=== PATIENT | male | born 1975 | race Caucasian/White ===

== ENCOUNTER 2021-09-30 11:31 | Inpatient (IN) ==
[2021-09-30] MEDS ORDERED: methylPREDNISolone SOD SUC 125 MG/2 ML VIAL IV STA (12:15)
[2021-09-30] MEDS ORDERED: SODIUM CHLORIDE 0.9% 1,000 ML IV STA (12:15)
[2021-09-30 12:24] LABS: Basophils % 0.3 % (0.0-0.8); Eosinophils # 0.1 10*3/uL (0.0-0.87); Eosinophils % 0.6 % (0.00-10.9); Hematocrit 45.1 VOL% (42.0-52.0); Hemoglobin 15.3 GM/DL (14.0-18.0); Immature Granulocytes % 0.5 %; Immature Granulocytes Absolute 0.08 #; Lymphocytes # 1.2 10*3/uL (1.4-4.0); Lymphocytes % 7.9 % (21.2-54.2); Mean Corpuscular HGB Conc 33.9 GM/DL (32-36); Mean Corpuscular Volume 94.7 FL (87-102); Mean Platelet Volume 8.6 FL (9.6-12.0); Monocytes # 1.1 10*3/uL (0.11-0.8); Monocytes % 6.9 % (1.7-12.7); Neutrophils % 83.8 % (38.7-73.9); Platelet Count 263 T/CUMM (130-400); Red Blood Count 4.76 MC/CUMM (3.8-5.5); Red Cell Distribution Width 14.1 % (9.3-17.3); White Blood Count 15.5 T/CUMM (4-12)
[2021-09-30] MEDS ORDERED: SODIUM CHLORIDE 0.9% 2,900 ML IV ONE (12:45)
[2021-09-30 12:46] LABS: Albumin 3.1 G/DL (3.4-5.0); Bilirubin,Total 0.5 MG/DL (0.20-1.00); Calcium 8.6 MG/DL (8.5-10.1); Osmolality,Calculated 275.5 MOS/KG (273-304); Potassium 3.3 MMOL/L (3.5-5.1); Total Protein 7.1 G/DL (6.4-8.2)
[2021-09-30] MEDS ORDERED: LEVOFLOXACIN INJ 750 MG in PREMIX 1 EACH IV STA (12:46)
[2021-09-30 12:48] LABS: Mucus,Urine Occasional /LPF (Occasional); RBC,Urine 4 /HPF (0-4); Squamous Epithelial Cell,Urine Occasional /HPF (0-10); Urine Appearance Clear (Clear); Urine Color Yellow (Yellow)
[2021-09-30 12:49] LABS: Bilirubin,Urine Negative (Negative); Blood, Urine Negative (Negative); Glucose,Urine (UA) Negative (Negative); Ketones,Urine Negative (Negative); Nitrite,Urine Negative (Negative); Protein,Urine 100 mg/dL (Negative)
[2021-09-30 12:52] LABS: PT Patient Result 11.4 SECS (10.5-12.0); Partial Thromboplastin Time 24.2 SECS (23.8-32.1)
[2021-09-30] MEDS ORDERED: DEXTROSE 10% 250 ML BAG IV PRN (13:27)
[2021-09-30] MEDS ORDERED: DOCUSATE SODIUM 100 MG CAPSULE PO PRN (13:27)
[2021-09-30] MEDS ORDERED: hydrALAZINE 20 MG/1 ML VIAL IV PRN (13:27)
[2021-09-30] MEDS ORDERED: ACETAMINOPHEN 325 MG TABLET PO PRN (13:27)
[2021-09-30] MEDS ORDERED: ONDANSETRON 4 MG/2 ML VIAL IV PRN (13:27)
[2021-09-30] MEDS ORDERED: GLUCAGON 1 MG VIAL IM PRN (13:27)
[2021-09-30] MEDS: methylPREDNISolone SOD SUC 125 MG/2 ML VIAL IV SCH ×2 (14:45→21:14)
[2021-09-30] MEDS: ENOXAPARIN 40 MG/0.4 ML SYRINGE SUBCUT SCH (14:45)
[2021-09-30] MEDS ORDERED: PNEUMOCOCCAL VACCINE (23 VALENT) 0.5 ML VIAL IM ONE (15:20)
[2021-09-30] MEDS: SODIUM CHLORIDE 0.9% 1,000 ML IV SCH (16:15)
[2021-09-30] MEDS: VANCOMYCIN INJ 1,500 MG in SODIUM CHLORIDE 0.9% 500 ML IV SCH (18:25)
[2021-09-30] MEDS: INSULIN LISPRO 100 UNIT/ML SUBCUT SCH ×2 (18:25→20:39)
[2021-09-30] MEDS: ALBUTEROL/IPRATROPIUM 3 ML NEB RESP TX SCH (19:31)
[2021-09-30] MEDS: DICLOFENAC SODIUM 75 MG TABLET PO SCH (21:12)
[2021-10-01] MEDS: ALBUTEROL/IPRATROPIUM 3 ML NEB RESP TX SCH ×4 (00:30→19:41)
[2021-10-01 02:44] LABS: Basophils % 0.1 % (0.0-0.8); Hematocrit 41.7 VOL% (42.0-52.0); Hemoglobin 14.2 GM/DL (14.0-18.0); Immature Granulocytes % 0.4 %; Immature Granulocytes Absolute 0.04 #; Lymphocytes # 0.8 10*3/uL (1.4-4.0); Lymphocytes % 7.1 % (21.2-54.2); Mean Corpuscular HGB Conc 34.1 GM/DL (32-36); Mean Corpuscular Volume 95.4 FL (87-102); Mean Platelet Volume 8.6 FL (9.6-12.0); Monocytes # 0.3 10*3/uL (0.11-0.8); Neutrophils % 89.4 % (38.7-73.9); Platelet Count 239 T/CUMM (130-400); Red Blood Count 4.37 MC/CUMM (3.8-5.5); Red Cell Distribution Width 13.8 % (9.3-17.3)
[2021-10-01 02:56] LABS: Calcium 8.3 MG/DL (8.5-10.1); Osmolality,Calculated 280.4 MOS/KG (273-304); Potassium 3.7 MMOL/L (3.5-5.1)
[2021-10-01] MEDS: methylPREDNISolone SOD SUC 125 MG/2 ML VIAL IV SCH ×3 (05:22→21:18)
[2021-10-01] MEDS: SODIUM CHLORIDE 0.9% 1,000 ML IV SCH ×2 (05:22→17:10)
[2021-10-01] MEDS: VANCOMYCIN INJ 1,500 MG in SODIUM CHLORIDE 0.9% 500 ML IV SCH ×2 (05:24→17:10)
[2021-10-01] MEDS: DICLOFENAC SODIUM 75 MG TABLET PO SCH ×2 (10:01→21:17)
[2021-10-01] MEDS: MONTELUKAST 10 MG TABLET PO SCH (10:01)
[2021-10-01] MEDS: INSULIN LISPRO 100 UNIT/ML SUBCUT SCH ×4 (10:01→23:22)
[2021-10-01] MEDS: lisinopriL 10 MG TABLET PO SCH (10:01)
[2021-10-01] MEDS: PANTOPRAZOLE 40 MG TABLET PO SCH (10:01)
[2021-10-01] MEDS: LEVOFLOXACIN INJ 500 MG/100 ML PREMIX IV SCH (13:50)
[2021-10-01] MEDS: ENOXAPARIN 40 MG/0.4 ML SYRINGE SUBCUT SCH (13:50)
[2021-10-01] MEDS: FOLIC ACID 1 MG TABLET PO SCH (21:17)
[2021-10-02] MEDS: ALBUTEROL/IPRATROPIUM 3 ML NEB RESP TX SCH ×4 (00:25→20:13)
[2021-10-02] MEDS: methylPREDNISolone SOD SUC 125 MG/2 ML VIAL IV SCH ×3 (02:00→18:18)
[2021-10-02] MEDS: VANCOMYCIN INJ 1,500 MG in SODIUM CHLORIDE 0.9% 500 ML IV SCH ×2 (05:53→18:18)
[2021-10-02 06:29] LABS: Basophils % 0.1 % (0.0-0.8); Hematocrit 42.6 VOL% (42.0-52.0); Immature Granulocytes % 1.3 %; Immature Granulocytes Absolute 0.17 #; Lymphocytes # 0.6 10*3/uL (1.4-4.0); Lymphocytes % 4.8 % (21.2-54.2); Mean Corpuscular HGB Conc 32.9 GM/DL (32-36); Mean Corpuscular Volume 96.8 FL (87-102); Mean Platelet Volume 8.8 FL (9.6-12.0); Monocytes # 0.7 10*3/uL (0.11-0.8); Neutrophils % 88.8 % (38.7-73.9); Platelet Count 256 T/CUMM (130-400); Red Cell Distribution Width 14.1 % (9.3-17.3); White Blood Count 13.1 T/CUMM (4-12)
[2021-10-02 06:44] LABS: Calcium 8.9 MG/DL (8.5-10.1); Potassium 3.5 MMOL/L (3.5-5.1)
[2021-10-02 06:56] LABS: Lymphocytes 1 % (20-55); Total Cells Counted 100
[2021-10-02 06:57] LABS: Platelet Estimate Normal
[2021-10-02 07:03] LABS: Calcium 8.8 MG/DL (8.5-10.1); Potassium 3.6 MMOL/L (3.5-5.1)
[2021-10-02] MEDS: SODIUM CHLORIDE 0.9% 1,000 ML IV SCH (08:15)
[2021-10-02] MEDS: INSULIN LISPRO 100 UNIT/ML SUBCUT SCH ×3 (08:16→16:30)
[2021-10-02] MEDS: MONTELUKAST 10 MG TABLET PO SCH (08:31)
[2021-10-02] MEDS: MULTIVITAMIN (CENTRUM) TABLET PO SCH (08:31)
[2021-10-02] MEDS: lisinopriL 10 MG TABLET PO SCH (08:32)
[2021-10-02] MEDS: PANTOPRAZOLE 40 MG TABLET PO SCH (08:32)
[2021-10-02] MEDS: DICLOFENAC SODIUM 75 MG TABLET PO SCH ×2 (08:32→21:15)
[2021-10-02] MEDS: THIAMINE 100 MG TABLET PO SCH (08:33)
[2021-10-02] MEDS ORDERED: FUROSEMIDE 40 MG/4 ML VIAL IV ONE (11:00)
[2021-10-02] MEDS: LEVOFLOXACIN INJ 500 MG/100 ML PREMIX IV SCH (12:00)
[2021-10-02] MEDS: ENOXAPARIN 40 MG/0.4 ML SYRINGE SUBCUT SCH (13:45)
[2021-10-02] MEDS ORDERED: SODIUM CHLORIDE 0.65% NASAL SPRAY 45 ML BOTTLE BOTH NARES PRN (20:06)
[2021-10-02] MEDS: FOLIC ACID 1 MG TABLET PO SCH (21:15)
[2021-10-02] MEDS: ZALEPLON 5 MG CAPSULE PO PRN (22:29)
[2021-10-03] MEDS: ALBUTEROL/IPRATROPIUM 3 ML NEB RESP TX SCH ×4 (00:18→19:40)
[2021-10-03] MEDS: methylPREDNISolone SOD SUC 125 MG/2 ML VIAL IV SCH ×3 (02:21→17:58)
[2021-10-03] MEDS: VANCOMYCIN INJ 1,500 MG in SODIUM CHLORIDE 0.9% 500 ML IV SCH ×2 (05:44→17:58)
[2021-10-03 06:53] LABS: Basophils % 0.2 % (0.0-0.8); Hematocrit 44.5 VOL% (42.0-52.0); Hemoglobin 14.6 GM/DL (14.0-18.0); Immature Granulocytes % 1.5 %; Immature Granulocytes Absolute 0.16 #; Lymphocytes # 0.6 10*3/uL (1.4-4.0); Lymphocytes % 5.5 % (21.2-54.2); Mean Corpuscular HGB Conc 32.8 GM/DL (32-36); Mean Platelet Volume 9.3 FL (9.6-12.0); Monocytes # 0.5 10*3/uL (0.11-0.8); Monocytes % 4.6 % (1.7-12.7); Neutrophils % 88.2 % (38.7-73.9); Platelet Count 283 T/CUMM (130-400); Red Blood Count 4.54 MC/CUMM (3.8-5.5); Red Cell Distribution Width 14.6 % (9.3-17.3)
[2021-10-03 07:09] LABS: Calcium 8.7 MG/DL (8.5-10.1); Osmolality,Calculated 283.3 MOS/KG (273-304); Potassium 3.5 MMOL/L (3.5-5.1)
[2021-10-03] MEDS: DICLOFENAC SODIUM 75 MG TABLET PO SCH ×2 (09:40→20:49)
[2021-10-03] MEDS: lisinopriL 10 MG TABLET PO SCH (09:40)
[2021-10-03] MEDS: THIAMINE 100 MG TABLET PO SCH (09:40)
[2021-10-03] MEDS: MONTELUKAST 10 MG TABLET PO SCH (09:40)
[2021-10-03] MEDS: MULTIVITAMIN (CENTRUM) TABLET PO SCH (09:40)
[2021-10-03] MEDS: PANTOPRAZOLE 40 MG TABLET PO SCH (09:41)
[2021-10-03] MEDS: INSULIN LISPRO 100 UNIT/ML SUBCUT SCH ×5 (10:05→22:12)
[2021-10-03] MEDS: LEVOFLOXACIN INJ 500 MG/100 ML PREMIX IV SCH (13:50)
[2021-10-03] MEDS: ENOXAPARIN 40 MG/0.4 ML SYRINGE SUBCUT SCH (13:51)
[2021-10-03] MEDS: FOLIC ACID 1 MG TABLET PO SCH (20:49)
[2021-10-03] MEDS: ZALEPLON 5 MG CAPSULE PO PRN (23:02)
[2021-10-04] MEDS: ALBUTEROL/IPRATROPIUM 3 ML NEB RESP TX SCH ×4 (00:13→19:55)
[2021-10-04] MEDS: methylPREDNISolone SOD SUC 125 MG/2 ML VIAL IV SCH ×2 (02:18→09:06)
[2021-10-04 05:02] LABS: Basophils % 0.2 % (0.0-0.8); Hematocrit 42.7 VOL% (42.0-52.0); Hemoglobin 14.2 GM/DL (14.0-18.0); Immature Granulocytes % 2.8 %; Immature Granulocytes Absolute 0.31 #; Lymphocytes # 0.7 10*3/uL (1.4-4.0); Lymphocytes % 6.6 % (21.2-54.2); Mean Corpuscular HGB Conc 33.3 GM/DL (32-36); Mean Corpuscular Volume 96.6 FL (87-102); Mean Platelet Volume 8.7 FL (9.6-12.0); Monocytes # 0.7 10*3/uL (0.11-0.8); Monocytes % 6.6 % (1.7-12.7); Neutrophils % 83.8 % (38.7-73.9); Platelet Count 266 T/CUMM (130-400); Red Blood Count 4.42 MC/CUMM (3.8-5.5); Red Cell Distribution Width 14.5 % (9.3-17.3); White Blood Count 10.9 T/CUMM (4-12)
[2021-10-04 05:22] LABS: Calcium 8.7 MG/DL (8.5-10.1); Potassium 3.6 MMOL/L (3.5-5.1)
[2021-10-04] MEDS: VANCOMYCIN INJ 1,500 MG in SODIUM CHLORIDE 0.9% 500 ML IV SCH (05:57)
[2021-10-04] MEDS: MULTIVITAMIN (CENTRUM) TABLET PO SCH (09:06)
[2021-10-04] MEDS: PANTOPRAZOLE 40 MG TABLET PO SCH (09:06)
[2021-10-04] MEDS: lisinopriL 10 MG TABLET PO SCH (09:06)
[2021-10-04] MEDS: MONTELUKAST 10 MG TABLET PO SCH (09:06)
[2021-10-04] MEDS: THIAMINE 100 MG TABLET PO SCH (09:06)
[2021-10-04] MEDS: DICLOFENAC SODIUM 75 MG TABLET PO SCH ×2 (09:07→21:55)
[2021-10-04] MEDS: INSULIN LISPRO 100 UNIT/ML SUBCUT SCH ×4 (09:38→21:55)
[2021-10-04] MEDS: LEVOFLOXACIN INJ 500 MG/100 ML PREMIX IV SCH (13:14)
[2021-10-04] MEDS: ENOXAPARIN 40 MG/0.4 ML SYRINGE SUBCUT SCH (14:35)
[2021-10-04] MEDS: CLORAZEPATE 3.75 MG TABLET PO SCH ×2 (14:35→21:54)
[2021-10-04] MEDS: FLUTICASONE 50 MCG NASAL SPRAY 16 GM BOTTLE BOTH NARES SCH (16:22)
[2021-10-04] MEDS: methylPREDNISolone SOD SUC 40 MG/1 ML VIAL IV SCH (21:54)
[2021-10-04] MEDS: FOLIC ACID 1 MG TABLET PO SCH (21:55)
[2021-10-05] MEDS: ALBUTEROL/IPRATROPIUM 3 ML NEB RESP TX SCH ×2 (00:30→07:20)
[2021-10-05 04:59] LABS: Basophils # 0.1 10*3/uL (0.0-0.2); Basophils % 0.4 % (0.0-0.8); Hematocrit 44.9 VOL% (42.0-52.0); Hemoglobin 14.7 GM/DL (14.0-18.0); Immature Granulocytes % 4.2 %; Immature Granulocytes Absolute 0.54 #; Lymphocytes # 0.9 10*3/uL (1.4-4.0); Lymphocytes % 7.2 % (21.2-54.2); Mean Corpuscular HGB Conc 32.7 GM/DL (32-36); Mean Corpuscular Volume 97.6 FL (87-102); Mean Platelet Volume 8.8 FL (9.6-12.0); Monocytes % 7.6 % (1.7-12.7); NRBC # 0.02 10*3/uL; Neutrophils % 80.6 % (38.7-73.9); Platelet Count 290 T/CUMM (130-400); Red Cell Distribution Width 14.9 % (9.3-17.3); White Blood Count 12.8 T/CUMM (4-12)
[2021-10-05 05:23] LABS: Albumin 2.6 G/DL (3.4-5.0); Bilirubin,Total 0.4 MG/DL (0.20-1.00); Osmolality,Calculated 279.5 MOS/KG (273-304); Potassium 3.9 MMOL/L (3.5-5.1); Total Protein 6.4 G/DL (6.4-8.2)
[2021-10-05 05:37] LABS: Lymphocytes 14 % (20-55); Total Cells Counted 100
[2021-10-05 05:38] LABS: Macrocytosis Slight; Platelet Estimate Normal; Polychromasia Slight
[2021-10-05] MEDS: MONTELUKAST 10 MG TABLET PO SCH (08:33)
[2021-10-05] MEDS: DICLOFENAC SODIUM 75 MG TABLET PO SCH (08:33)
[2021-10-05] MEDS: PANTOPRAZOLE 40 MG TABLET PO SCH (08:33)
[2021-10-05] MEDS: THIAMINE 100 MG TABLET PO SCH (08:33)
[2021-10-05] MEDS: methylPREDNISolone SOD SUC 40 MG/1 ML VIAL IV SCH (08:33)
[2021-10-05] MEDS: CLORAZEPATE 3.75 MG TABLET PO SCH (08:34)
[2021-10-05] MEDS: MULTIVITAMIN (CENTRUM) TABLET PO SCH (08:34)
[2021-10-05] MEDS: lisinopriL 10 MG TABLET PO SCH (08:34)
[2021-10-05] MEDS: INSULIN LISPRO 100 UNIT/ML SUBCUT SCH ×2 (08:39→12:40)
[2021-10-05] MEDS: FLUTICASONE 50 MCG NASAL SPRAY 16 GM BOTTLE BOTH NARES SCH (08:40)
[2021-10-05 11:54] VITALS: BP 153/104
== END 2021-10-05 14:17 | disposition home or self-care (01) | DRG 196 ==
LOC: N.ED 11:31 → SUATTDRO 13:27 → N.EDINP 13:27 → N.5E 15:41
PROVIDERS: ADMIT Internal Medicine; ATTEND Internal Medicine

== ENCOUNTER 2021-10-11 10:01 | Inpatient (IN) ==
[2021-10-11] MEDS ORDERED: ALBUTEROL/IPRATROPIUM 3 ML NEB RESP TX STA (10:39)
[2021-10-11] MEDS ORDERED: SODIUM CHLORIDE 0.9% 1,000 ML IV STA (10:46)
[2021-10-11 10:47] LABS: Basophils % 0.2 % (0.0-0.8); Eosinophils # 0.3 10*3/uL (0.0-0.87); Eosinophils % 1.7 % (0.00-10.9); Immature Granulocytes % 0.9 %; Immature Granulocytes Absolute 0.18 #; Lymphocytes # 1.2 10*3/uL (1.4-4.0); Lymphocytes % 6.2 % (21.2-54.2); Mean Corpuscular HGB Conc 33.3 GM/DL (32-36); Mean Corpuscular Volume 97.7 FL (87-102); Mean Platelet Volume 9.3 FL (9.6-12.0); Monocytes # 0.9 10*3/uL (0.11-0.8); Monocytes % 4.3 % (1.7-12.7); Neutrophils % 86.7 % (38.7-73.9); Platelet Count 255 T/CUMM (130-400); Red Blood Count 5.22 MC/CUMM (3.8-5.5); Red Cell Distribution Width 15.5 % (9.3-17.3); White Blood Count 19.9 T/CUMM (4-12)
[2021-10-11 11:03] LABS: Arterial Base Excess iSTAT -1 MMOL/L (-2.5-2.5); Arterial Bicarbonate iSTAT 22.7 MMOL/L (20-26); Arterial O2 Saturation iSTAT 95 % (95-100); Arterial PCO2 iSTAT 35 MM HG (35-48); Arterial PO2 iSTAT 73 MM HG (80-95); Arterial Total CO2 iSTAT 24 MMO/L (23-27); Arterial pH iSTAT 7.417 (7.35-7.45)
[2021-10-11] MEDS ORDERED: MEROPENEM 1,000 MG in SODIUM CHLORIDE 0.9% 100 ML IV ONE (11:14)
[2021-10-11] MEDS ORDERED: diphenhydrAMINE 50 MG/1 ML VIAL IV STA (11:15)
[2021-10-11 11:17] LABS: Bilirubin,Total 1.1 MG/DL (0.20-1.00); Osmolality,Calculated 276.8 MOS/KG (273-304); Potassium 4.7 MMOL/L (3.5-5.1); Total Protein 6.6 G/DL (6.4-8.2)
[2021-10-11] MEDS ORDERED: MEROPENEM 500 MG in SODIUM CHLORIDE 0.9% 100 ML IV ONE (11:30)
[2021-10-11] MEDS ORDERED: GLUCAGON 1 MG VIAL IM PRN (14:20)
[2021-10-11] MEDS ORDERED: ONDANSETRON 4 MG/2 ML VIAL IV PRN (14:20)
[2021-10-11] MEDS ORDERED: DEXTROSE 10% 250 ML BAG IV PRN (14:26)
[2021-10-11] MEDS ORDERED: SODIUM CHLORIDE 0.65% NASAL SPRAY 45 ML BOTTLE BOTH NARES PRN (14:47)
[2021-10-11] MEDS: ALBUTEROL/IPRATROPIUM 3 ML NEB RESP TX SCH ×2 (15:00→19:20)
[2021-10-11] MEDS ORDERED: PNEUMOCOCCAL VACCINE (23 VALENT) 0.5 ML VIAL IM ONE (15:34)
[2021-10-11] MEDS: MONTELUKAST 10 MG TABLET PO SCH (21:11)
[2021-10-11] MEDS: FOLIC ACID 1 MG TABLET PO SCH (21:11)
[2021-10-11] MEDS: ENOXAPARIN 40 MG/0.4 ML SYRINGE SUBCUT SCH (21:11)
[2021-10-12] MEDS: ALBUTEROL/IPRATROPIUM 3 ML NEB RESP TX SCH ×7 (01:00→23:23)
[2021-10-12 05:07] LABS: Basophils % 0.1 % (0.0-0.8); Eosinophils # 0.6 10*3/uL (0.0-0.87); Eosinophils % 3.3 % (0.00-10.9); Hematocrit 46.5 VOL% (42.0-52.0); Hemoglobin 15.2 GM/DL (14.0-18.0); Immature Granulocytes % 0.9 %; Immature Granulocytes Absolute 0.15 #; Lymphocytes # 1.5 10*3/uL (1.4-4.0); Lymphocytes % 8.9 % (21.2-54.2); Mean Corpuscular HGB Conc 32.7 GM/DL (32-36); Mean Corpuscular Volume 98.5 FL (87-102); Mean Platelet Volume 9.3 FL (9.6-12.0); Monocytes # 0.8 10*3/uL (0.11-0.8); Monocytes % 4.9 % (1.7-12.7); Neutrophils % 81.9 % (38.7-73.9); Platelet Count 248 T/CUMM (130-400); Red Blood Count 4.72 MC/CUMM (3.8-5.5); Red Cell Distribution Width 15.3 % (9.3-17.3); White Blood Count 16.7 T/CUMM (4-12)
[2021-10-12 05:30] LABS: Albumin 2.2 G/DL (3.4-5.0); Bilirubin,Total 0.7 MG/DL (0.20-1.00); Calcium 8.1 MG/DL (8.5-10.1); Osmolality,Calculated 273.8 MOS/KG (273-304); Potassium 4.2 MMOL/L (3.5-5.1); Total Protein 6.3 G/DL (6.4-8.2)
[2021-10-12] MEDS: PANTOPRAZOLE 40 MG TABLET PO SCH (06:35)
[2021-10-12] MEDS ORDERED: FUROSEMIDE 40 MG TABLET PO SCH (09:00)
[2021-10-12] MEDS: FLUTICASONE 50 MCG NASAL SPRAY 16 GM BOTTLE BOTH NARES SCH (09:01)
[2021-10-12] MEDS: lisinopriL 10 MG TABLET PO SCH (09:02)
[2021-10-12] MEDS: ESCITALOPRAM 10 MG TABLET PO SCH (09:02)
[2021-10-12] MEDS ORDERED: FUROSEMIDE 40 MG/4 ML VIAL IV ONE (11:00)
[2021-10-12] MEDS: CLORAZEPATE 3.75 MG TABLET PO SCH ×3 (13:06→22:08)
[2021-10-12] MEDS: LEVOFLOXACIN INJ 500 MG/100 ML PREMIX IV SCH (13:08)
[2021-10-12] MEDS: methylPREDNISolone SOD SUC 40 MG/1 ML VIAL IV SCH ×2 (13:13→22:08)
[2021-10-12] MEDS: FUROSEMIDE 40 MG/4 ML VIAL IV SCH (16:11)
[2021-10-12] MEDS: FOLIC ACID 1 MG TABLET PO SCH (22:08)
[2021-10-12] MEDS: MONTELUKAST 10 MG TABLET PO SCH (22:08)
[2021-10-12] MEDS: ENOXAPARIN 40 MG/0.4 ML SYRINGE SUBCUT SCH (22:13)
[2021-10-13] MEDS: ALBUTEROL/IPRATROPIUM 3 ML NEB RESP TX SCH ×5 (03:27→19:36)
[2021-10-13 05:16] LABS: Basophils % 0.1 % (0.0-0.8); Hematocrit 46.1 VOL% (42.0-52.0); Hemoglobin 15.2 GM/DL (14.0-18.0); Immature Granulocytes % 0.8 %; Immature Granulocytes Absolute 0.14 #; Lymphocytes # 0.7 10*3/uL (1.4-4.0); Lymphocytes % 4.1 % (21.2-54.2); Mean Corpuscular Volume 98.9 FL (87-102); Mean Platelet Volume 9.1 FL (9.6-12.0); Monocytes # 0.4 10*3/uL (0.11-0.8); Monocytes % 2.4 % (1.7-12.7); Neutrophils % 92.6 % (38.7-73.9); Platelet Count 248 T/CUMM (130-400); Red Blood Count 4.66 MC/CUMM (3.8-5.5); Red Cell Distribution Width 14.8 % (9.3-17.3)
[2021-10-13 05:39] LABS: Lymphocytes 3 % (20-55); Platelet Estimate Adequate; Total Cells Counted 100
[2021-10-13 05:44] LABS: Osmolality,Calculated 275.2 MOS/KG (273-304); Potassium 4.4 MMOL/L (3.5-5.1)
[2021-10-13] MEDS: PANTOPRAZOLE 40 MG TABLET PO SCH (05:47)
[2021-10-13] MEDS: methylPREDNISolone SOD SUC 40 MG/1 ML VIAL IV SCH ×3 (05:48→20:22)
[2021-10-13] MEDS ORDERED: MEROPENEM 500 MG in SODIUM CHLORIDE 0.9% 100 ML IV SCH (09:00)
[2021-10-13] MEDS: DORNASE ALFA 2.5 MG/2.5 ML VIAL RESP TX SCH ×2 (11:10→19:36)
[2021-10-13] MEDS: FUROSEMIDE 40 MG/4 ML VIAL IV SCH ×2 (11:25→16:27)
[2021-10-13] MEDS: LEVOFLOXACIN INJ 500 MG/100 ML PREMIX IV SCH (11:26)
[2021-10-13] MEDS: CLORAZEPATE 3.75 MG TABLET PO SCH ×3 (11:26→20:22)
[2021-10-13] MEDS: MONTELUKAST 10 MG TABLET PO SCH ×2 (11:26→20:22)
[2021-10-13] MEDS: FLUTICASONE 50 MCG NASAL SPRAY 16 GM BOTTLE BOTH NARES SCH (11:26)
[2021-10-13] MEDS: ESCITALOPRAM 10 MG TABLET PO SCH (11:26)
[2021-10-13] MEDS: lisinopriL 10 MG TABLET PO SCH (11:58)
[2021-10-13] MEDS: NICOTINE 14 MG/24 HR PATCH TRANSDERM PRN (16:28)
[2021-10-13] MEDS: FOLIC ACID 1 MG TABLET PO SCH (20:20)
[2021-10-13] MEDS: ENOXAPARIN 40 MG/0.4 ML SYRINGE SUBCUT SCH (20:21)
[2021-10-14] MEDS: ALBUTEROL/IPRATROPIUM 3 ML NEB RESP TX SCH ×7 (00:15→23:58)
[2021-10-14 05:18] LABS: Basophils % 0.2 % (0.0-0.8); Hematocrit 44.7 VOL% (42.0-52.0); Hemoglobin 14.8 GM/DL (14.0-18.0); Immature Granulocytes % 0.9 %; Immature Granulocytes Absolute 0.18 #; Lymphocytes # 0.8 10*3/uL (1.4-4.0); Mean Corpuscular HGB Conc 33.1 GM/DL (32-36); Mean Corpuscular Volume 97.6 FL (87-102); Mean Platelet Volume 9.1 FL (9.6-12.0); Monocytes % 5.3 % (1.7-12.7); Neutrophils % 89.6 % (38.7-73.9); Platelet Count 281 T/CUMM (130-400); Red Blood Count 4.58 MC/CUMM (3.8-5.5); Red Cell Distribution Width 14.6 % (9.3-17.3); White Blood Count 19.5 T/CUMM (4-12)
[2021-10-14 05:32] LABS: Lymphocytes 8 % (20-55); Total Cells Counted 100
[2021-10-14 05:33] LABS: Platelet Estimate Normal
[2021-10-14] MEDS: methylPREDNISolone SOD SUC 40 MG/1 ML VIAL IV SCH ×3 (05:40→20:35)
[2021-10-14] MEDS: PANTOPRAZOLE 40 MG TABLET PO SCH (05:41)
[2021-10-14 05:47] LABS: Calcium 8.7 MG/DL (8.5-10.1); Potassium 4.6 MMOL/L (3.5-5.1)
[2021-10-14] MEDS: DORNASE ALFA 2.5 MG/2.5 ML VIAL RESP TX SCH ×2 (07:13→19:58)
[2021-10-14] MEDS: FUROSEMIDE 40 MG/4 ML VIAL IV SCH ×2 (08:21→15:31)
[2021-10-14] MEDS: CLORAZEPATE 3.75 MG TABLET PO SCH ×3 (08:22→20:30)
[2021-10-14] MEDS: MONTELUKAST 10 MG TABLET PO SCH ×2 (08:22→20:30)
[2021-10-14] MEDS: ESCITALOPRAM 10 MG TABLET PO SCH (08:22)
[2021-10-14] MEDS: FLUTICASONE 50 MCG NASAL SPRAY 16 GM BOTTLE BOTH NARES SCH (08:22)
[2021-10-14] MEDS: LEVOFLOXACIN INJ 500 MG/100 ML PREMIX IV SCH (11:11)
[2021-10-14] MEDS: ENOXAPARIN 40 MG/0.4 ML SYRINGE SUBCUT SCH (20:30)
[2021-10-14] MEDS: FOLIC ACID 1 MG TABLET PO SCH (20:30)
[2021-10-15] MEDS: ALBUTEROL/IPRATROPIUM 3 ML NEB RESP TX SCH ×6 (04:10→23:44)
[2021-10-15 05:34] LABS: Basophils % 0.1 % (0.0-0.8); Hematocrit 44.9 VOL% (42.0-52.0); Immature Granulocytes % 0.7 %; Lymphocytes # 0.5 10*3/uL (1.4-4.0); Lymphocytes % 3.3 % (21.2-54.2); Mean Corpuscular HGB Conc 33.4 GM/DL (32-36); Mean Corpuscular Volume 97.6 FL (87-102); Mean Platelet Volume 8.8 FL (9.6-12.0); Monocytes # 1.3 10*3/uL (0.11-0.8); Monocytes % 8.5 % (1.7-12.7); Neutrophils % 87.4 % (38.7-73.9); Platelet Count 247 T/CUMM (130-400); Red Cell Distribution Width 14.3 % (9.3-17.3); White Blood Count 15.3 T/CUMM (4-12)
[2021-10-15 05:44] LABS: INR 1.1; PT Patient Result 12.4 SECS (10.5-12.0); Partial Thromboplastin Time 29.8 SECS (23.7-32.9)
[2021-10-15] MEDS: methylPREDNISolone SOD SUC 40 MG/1 ML VIAL IV SCH ×3 (05:45→20:23)
[2021-10-15 05:49] LABS: Calcium 8.4 MG/DL (8.5-10.1); Osmolality,Calculated 280.7 MOS/KG (273-304); Potassium 4.3 MMOL/L (3.5-5.1)
[2021-10-15 05:57] LABS: Anisocytosis Slight; Band Neutrophils 4 % (0-10); Lymphocytes 6 % (20-55); Macrocytosis Slight; Platelet Estimate Normal; Total Cells Counted 100
[2021-10-15] MEDS: PANTOPRAZOLE 40 MG TABLET PO SCH (05:59)
[2021-10-15] MEDS: DORNASE ALFA 2.5 MG/2.5 ML VIAL RESP TX SCH ×2 (07:22→19:00)
[2021-10-15] MEDS ORDERED: diphenhydrAMINE 50 MG/1 ML VIAL IM ONE (07:30)
[2021-10-15] MEDS ORDERED: BENZONATATE 100 MG CAPSULE PO ONE (07:30)
[2021-10-15] MEDS ORDERED: MEPERIDINE 50 MG/1 ML VIAL IM ONE (07:30)
[2021-10-15] MEDS ORDERED: MIDAZOLAM 2 MG/2 ML VIAL IV ONE (08:00)
[2021-10-15] MEDS ORDERED: LIDOCAINE 2% 20 ML VIAL RESP TX ONE (08:00)
[2021-10-15] MEDS ORDERED: LIDOCAINE 2% VISCOUS 100 ML BOTTLE SWISH/SPIT ONE (08:00)
[2021-10-15] MEDS ORDERED: LIDOCAINE 1% 20 ML VIAL MISC INJ ONE (08:00)
[2021-10-15] MEDS: FLUTICASONE 50 MCG NASAL SPRAY 16 GM BOTTLE BOTH NARES SCH (08:30)
[2021-10-15] MEDS: FUROSEMIDE 40 MG/4 ML VIAL IV SCH ×2 (11:00→15:58)
[2021-10-15] MEDS: LEVOFLOXACIN INJ 500 MG/100 ML PREMIX IV SCH (11:00)
[2021-10-15] MEDS: ESCITALOPRAM 10 MG TABLET PO SCH (11:35)
[2021-10-15] MEDS: CLORAZEPATE 3.75 MG TABLET PO SCH ×3 (11:36→20:21)
[2021-10-15] MEDS: MONTELUKAST 10 MG TABLET PO SCH ×2 (11:36→20:21)
[2021-10-15] MEDS: NICOTINE 14 MG/24 HR PATCH TRANSDERM PRN (16:13)
[2021-10-15] MEDS: FOLIC ACID 1 MG TABLET PO SCH (20:21)
[2021-10-15] MEDS: ENOXAPARIN 40 MG/0.4 ML SYRINGE SUBCUT SCH (20:22)
[2021-10-15] MEDS: ACETAMINOPHEN 325 MG TABLET PO PRN (21:33)
[2021-10-16] MEDS: ALBUTEROL/IPRATROPIUM 3 ML NEB RESP TX SCH ×6 (03:10→23:47)
[2021-10-16 05:06] LABS: Basophils % 0.1 % (0.0-0.8); Hematocrit 45.9 VOL% (42.0-52.0); Hemoglobin 15.1 GM/DL (14.0-18.0); Immature Granulocytes % 0.8 %; Immature Granulocytes Absolute 0.12 #; Lymphocytes # 0.7 10*3/uL (1.4-4.0); Lymphocytes % 4.8 % (21.2-54.2); Mean Corpuscular HGB Conc 32.9 GM/DL (32-36); Mean Corpuscular Volume 97.2 FL (87-102); Mean Platelet Volume 9.3 FL (9.6-12.0); Monocytes # 1.5 10*3/uL (0.11-0.8); Monocytes % 10.1 % (1.7-12.7); Neutrophils % 84.2 % (38.7-73.9); Platelet Count 293 T/CUMM (130-400); Red Blood Count 4.72 MC/CUMM (3.8-5.5); Red Cell Distribution Width 14.1 % (9.3-17.3); White Blood Count 14.5 T/CUMM (4-12)
[2021-10-16 05:22] LABS: Calcium 8.9 MG/DL (8.5-10.1); Osmolality,Calculated 274.1 MOS/KG (273-304); Potassium 4.1 MMOL/L (3.5-5.1)
[2021-10-16 05:39] LABS: Lymphocytes 8 % (20-55); Platelet Estimate Normal; Total Cells Counted 100
[2021-10-16] MEDS: methylPREDNISolone SOD SUC 40 MG/1 ML VIAL IV SCH ×3 (05:57→20:18)
[2021-10-16] MEDS: DORNASE ALFA 2.5 MG/2.5 ML VIAL RESP TX SCH ×2 (07:21→18:24)
[2021-10-16] MEDS: FUROSEMIDE 40 MG/4 ML VIAL IV SCH ×2 (08:30→16:43)
[2021-10-16] MEDS: FLUTICASONE 50 MCG NASAL SPRAY 16 GM BOTTLE BOTH NARES SCH (08:42)
[2021-10-16] MEDS: ESCITALOPRAM 10 MG TABLET PO SCH (09:10)
[2021-10-16] MEDS: MONTELUKAST 10 MG TABLET PO SCH ×2 (09:10→20:17)
[2021-10-16] MEDS: CLORAZEPATE 3.75 MG TABLET PO SCH ×3 (09:10→20:18)
[2021-10-16] MEDS: PANTOPRAZOLE 40 MG TABLET PO SCH (09:10)
[2021-10-16] MEDS: LEVOFLOXACIN INJ 500 MG/100 ML PREMIX IV SCH (10:34)
[2021-10-16] MEDS: FOLIC ACID 1 MG TABLET PO SCH (20:16)
[2021-10-16] MEDS: ENOXAPARIN 40 MG/0.4 ML SYRINGE SUBCUT SCH (20:16)
[2021-10-17] MEDS: ALBUTEROL/IPRATROPIUM 3 ML NEB RESP TX SCH ×6 (03:30→22:55)
[2021-10-17 04:23] LABS: Basophils % 0.1 % (0.0-0.8); Hematocrit 44.3 VOL% (42.0-52.0); Hemoglobin 14.5 GM/DL (14.0-18.0); Immature Granulocytes % 0.8 %; Lymphocytes # 0.5 10*3/uL (1.4-4.0); Lymphocytes % 3.6 % (21.2-54.2); Mean Corpuscular HGB Conc 32.7 GM/DL (32-36); Mean Corpuscular Volume 97.6 FL (87-102); Mean Platelet Volume 9.3 FL (9.6-12.0); Monocytes % 7.8 % (1.7-12.7); Neutrophils % 87.7 % (38.7-73.9); Platelet Count 262 T/CUMM (130-400); Red Blood Count 4.54 MC/CUMM (3.8-5.5); Red Cell Distribution Width 14.1 % (9.3-17.3); White Blood Count 13.2 T/CUMM (4-12)
[2021-10-17 04:35] LABS: Lymphocytes 7 % (20-55); Platelet Estimate Adequate; Total Cells Counted 100
[2021-10-17 04:41] LABS: Calcium 8.8 MG/DL (8.5-10.1); Osmolality,Calculated 276.8 MOS/KG (273-304); Potassium 4.3 MMOL/L (3.5-5.1)
[2021-10-17] MEDS: methylPREDNISolone SOD SUC 40 MG/1 ML VIAL IV SCH ×3 (05:46→21:13)
[2021-10-17] MEDS: DORNASE ALFA 2.5 MG/2.5 ML VIAL RESP TX SCH ×2 (07:21→19:55)
[2021-10-17] MEDS: FUROSEMIDE 40 MG/4 ML VIAL IV SCH ×2 (08:00→16:29)
[2021-10-17] MEDS: FLUTICASONE 50 MCG NASAL SPRAY 16 GM BOTTLE BOTH NARES SCH (08:45)
[2021-10-17] MEDS: ESCITALOPRAM 10 MG TABLET PO SCH (09:00)
[2021-10-17] MEDS: MONTELUKAST 10 MG TABLET PO SCH ×2 (09:00→21:13)
[2021-10-17] MEDS: CLORAZEPATE 3.75 MG TABLET PO SCH ×3 (09:00→21:13)
[2021-10-17] MEDS: PANTOPRAZOLE 40 MG TABLET PO SCH (09:00)
[2021-10-17] MEDS: LEVOFLOXACIN INJ 500 MG/100 ML PREMIX IV SCH (10:30)
[2021-10-17] MEDS: ACETAMINOPHEN 325 MG TABLET PO PRN (18:10)
[2021-10-17] MEDS: FOLIC ACID 1 MG TABLET PO SCH (21:12)
[2021-10-17] MEDS: ENOXAPARIN 40 MG/0.4 ML SYRINGE SUBCUT SCH (21:12)
[2021-10-17] MEDS: MEROPENEM 500 MG in SODIUM CHLORIDE 0.9% 100 ML IV SCH (22:43)
[2021-10-17] MEDS: VANCOMYCIN INJ 1,500 MG in SODIUM CHLORIDE 0.9% 500 ML IV SCH (23:11)
[2021-10-18] MEDS: ZALEPLON 5 MG CAPSULE PO PRN ×2 (02:20→22:31)
[2021-10-18] MEDS: ALBUTEROL/IPRATROPIUM 3 ML NEB RESP TX SCH ×6 (03:58→23:12)
[2021-10-18 04:03] LABS: Basophils % 0.1 % (0.0-0.8); Hematocrit 46.1 VOL% (42.0-52.0); Hemoglobin 15.1 GM/DL (14.0-18.0); Immature Granulocytes % 0.5 %; Immature Granulocytes Absolute 0.07 #; Lymphocytes # 0.4 10*3/uL (1.4-4.0); Lymphocytes % 2.7 % (21.2-54.2); Mean Corpuscular HGB Conc 32.8 GM/DL (32-36); Mean Corpuscular Volume 96.6 FL (87-102); Mean Platelet Volume 9.1 FL (9.6-12.0); Monocytes # 0.6 10*3/uL (0.11-0.8); Monocytes % 4.2 % (1.7-12.7); Neutrophils % 92.5 % (38.7-73.9); Platelet Count 291 T/CUMM (130-400); Red Blood Count 4.77 MC/CUMM (3.8-5.5); Red Cell Distribution Width 13.8 % (9.3-17.3); White Blood Count 14.5 T/CUMM (4-12)
[2021-10-18 04:18] LABS: Lymphocytes 1 % (20-55); Platelet Estimate Adequate; Total Cells Counted 100
[2021-10-18] MEDS: MEROPENEM 500 MG in SODIUM CHLORIDE 0.9% 100 ML IV SCH ×4 (04:24→21:07)
[2021-10-18] MEDS: methylPREDNISolone SOD SUC 40 MG/1 ML VIAL IV SCH ×3 (04:25→20:54)
[2021-10-18 04:27] LABS: Calcium 8.7 MG/DL (8.5-10.1); Potassium 4.4 MMOL/L (3.5-5.1)
[2021-10-18] MEDS: DORNASE ALFA 2.5 MG/2.5 ML VIAL RESP TX SCH ×2 (07:08→19:06)
[2021-10-18] MEDS: FUROSEMIDE 40 MG/4 ML VIAL IV SCH ×2 (07:52→16:42)
[2021-10-18] MEDS: NICOTINE 14 MG/24 HR PATCH TRANSDERM PRN (08:00)
[2021-10-18] MEDS: ESCITALOPRAM 10 MG TABLET PO SCH (08:01)
[2021-10-18] MEDS: FLUTICASONE 50 MCG NASAL SPRAY 16 GM BOTTLE BOTH NARES SCH (08:01)
[2021-10-18] MEDS: MONTELUKAST 10 MG TABLET PO SCH ×2 (08:01→20:54)
[2021-10-18] MEDS: PANTOPRAZOLE 40 MG TABLET PO SCH (08:01)
[2021-10-18] MEDS: CLORAZEPATE 3.75 MG TABLET PO SCH ×3 (08:01→20:52)
[2021-10-18] MEDS: valACYclovir 500 MG TABLET PO SCH ×2 (11:11→20:53)
[2021-10-18] MEDS: VANCOMYCIN INJ 1,500 MG in SODIUM CHLORIDE 0.9% 500 ML IV SCH ×2 (11:11→22:32)
[2021-10-18] MEDS: guaiFENesin/CODEINE 5 ML LIQUID PO PRN ×2 (14:50→21:12)
[2021-10-18] MEDS: MORPHINE 2 MG/1 ML SYRINGE IV PRN ×2 (15:00→22:32)
[2021-10-18] MEDS: LORazepam 1 MG TABLET PO PRN ×2 (16:10→20:52)
[2021-10-18] MEDS: lisinopriL 20 MG TABLET PO SCH (16:42)
[2021-10-18] MEDS ORDERED: ETOMIDATE 20 MG/10 ML VIAL IV ONE (16:49)
[2021-10-18] MEDS ORDERED: SUCCINYLCHOLINE 200 MG/10 ML VIAL ONE (16:51)
[2021-10-18] MEDS ORDERED: DIAZEPAM 10 MG/2 ML SYRINGE IV ONE (16:55)
[2021-10-18] MEDS ORDERED: DIAZEPAM 10 MG/2 ML SYRINGE ONE (16:56)
[2021-10-18] MEDS ORDERED: hydrALAZINE 20 MG/1 ML VIAL IV PRN (17:38)
[2021-10-18 19:46] LABS: M. Tuberculosis PCR Result Negative (Negative); M. Tuberculosis PCR Source BRONCH WASH
[2021-10-18] MEDS: DIAZEPAM 10 MG/2 ML SYRINGE IV PRN (20:20)
[2021-10-18] MEDS: FOLIC ACID 1 MG TABLET PO SCH (20:52)
[2021-10-18] MEDS: ENOXAPARIN 40 MG/0.4 ML SYRINGE SUBCUT SCH (20:55)
[2021-10-19] MEDS: DIAZEPAM 10 MG/2 ML SYRINGE IV PRN ×4 (02:55→14:43)
[2021-10-19] MEDS: ALBUTEROL/IPRATROPIUM 3 ML NEB RESP TX SCH ×5 (03:15→19:33)
[2021-10-19 04:07] LABS: Bilirubin,Total 0.8 MG/DL (0.20-1.00); Calcium 8.6 MG/DL (8.5-10.1); Total Protein 6.6 G/DL (6.4-8.2)
[2021-10-19 04:08] LABS: Albumin 2.4 G/DL (3.4-5.0); Osmolality,Calculated 273.1 MOS/KG (273-304); Potassium 4.4 MMOL/L (3.5-5.1)
[2021-10-19] MEDS: MEROPENEM 500 MG in SODIUM CHLORIDE 0.9% 100 ML IV SCH ×3 (04:58→21:08)
[2021-10-19] MEDS: methylPREDNISolone SOD SUC 40 MG/1 ML VIAL IV SCH ×3 (04:59→21:07)
[2021-10-19] MEDS: DORNASE ALFA 2.5 MG/2.5 ML VIAL RESP TX SCH ×2 (07:05→19:34)
[2021-10-19 08:15] LABS: Basophils % 0.1 % (0.0-0.8); Eosinophils % 0.1 % (0.00-10.9); Hematocrit 45.7 VOL% (42.0-52.0); Hemoglobin 15.2 GM/DL (14.0-18.0); Immature Granulocytes % 0.8 %; Immature Granulocytes Absolute 0.14 #; Lymphocytes # 0.4 10*3/uL (1.4-4.0); Lymphocytes % 2.4 % (21.2-54.2); Mean Corpuscular HGB Conc 33.3 GM/DL (32-36); Mean Corpuscular Volume 96.6 FL (87-102); Mean Platelet Volume 8.8 FL (9.6-12.0); Monocytes # 0.8 10*3/uL (0.11-0.8); Monocytes % 4.4 % (1.7-12.7); Neutrophils % 92.2 % (38.7-73.9); Platelet Count 272 T/CUMM (130-400); Red Blood Count 4.73 MC/CUMM (3.8-5.5); Red Cell Distribution Width 13.8 % (9.3-17.3); White Blood Count 17.8 T/CUMM (4-12)
[2021-10-19 08:39] LABS: Lymphocytes 2 % (20-55); Total Cells Counted 100
[2021-10-19 08:40] LABS: Platelet Estimate Adequate
[2021-10-19] MEDS: MORPHINE 2 MG/1 ML SYRINGE IV PRN ×2 (10:24→15:01)
[2021-10-19 10:34] VITALS: BP 133/95
[2021-10-19] MEDS: MONTELUKAST 10 MG TABLET PO SCH ×2 (11:57→22:38)
[2021-10-19] MEDS: ESCITALOPRAM 10 MG TABLET PO SCH (11:57)
[2021-10-19] MEDS: FUROSEMIDE 40 MG/4 ML VIAL IV SCH ×2 (11:57→17:04)
[2021-10-19] MEDS: lisinopriL 20 MG TABLET PO SCH (11:57)
[2021-10-19] MEDS: FLUTICASONE 50 MCG NASAL SPRAY 16 GM BOTTLE BOTH NARES SCH (11:57)
[2021-10-19] MEDS: valACYclovir 500 MG TABLET PO SCH ×2 (11:58→22:38)
[2021-10-19] MEDS: CLORAZEPATE 3.75 MG TABLET PO SCH ×3 (11:58→22:38)
[2021-10-19] MEDS: guaiFENesin/CODEINE 5 ML LIQUID PO PRN (11:59)
[2021-10-19] MEDS: LORazepam 1 MG TABLET PO PRN (11:59)
[2021-10-19] MEDS: PANTOPRAZOLE 40 MG TABLET PO SCH (12:42)
[2021-10-19] MEDS ORDERED: ALBUTEROL/IPRATROPIUM 3 ML NEB RESP TX PRN (13:57)
[2021-10-19] MEDS ORDERED: SUCCINYLCHOLINE 200 MG/10 ML VIAL ONE (14:37)
[2021-10-19] MEDS ORDERED: ETOMIDATE 20 MG/10 ML VIAL IV ONE ×2 (14:37→16:02)
[2021-10-19] MEDS: VANCOMYCIN INJ 1,500 MG in SODIUM CHLORIDE 0.9% 500 ML IV SCH (15:11)
[2021-10-19] MEDS ORDERED: SUCCINYLCHOLINE 200 MG/10 ML VIAL IV ONE (16:01)
[2021-10-19] MEDS: ceFAZolin 2,000 MG/50 ML DUPLEX IV SCH ×2 (16:27→23:55)
[2021-10-19] MEDS ORDERED: VECURONIUM 100 MG in SODIUM CHLORIDE 0.9% 100 ML IV SCH (16:30)
[2021-10-19] MEDS: fentaNYL INJ 1,250 MCG in SODIUM CHLORIDE 0.9% 225 ML IV PRN (16:40)
[2021-10-19] MEDS ORDERED: METOPROLOL TARTRATE 5 MG/5 ML VIAL IV ONE ×2 (16:40→17:01)
[2021-10-19] MEDS ORDERED: SODIUM CHLORIDE 0.9% 500 ML IV ONE (16:53)
[2021-10-19] MEDS ORDERED: ATROPINE 1 MG/10 ML SYRINGE IV ONE (17:23)
[2021-10-19] MEDS ORDERED: EPINEPHrine 1 MG/10 ML SYRINGE IV ONE (17:25)
[2021-10-19] MEDS ORDERED: SODIUM BICARBONATE 50 MEQ/50 ML SYRINGE IV ONE (17:26)
[2021-10-19] MEDS ORDERED: NOREPINEPHRINE 4 MG/4 ML VIAL IV ONE ×3 (17:32→21:53)
[2021-10-19] MEDS: NOREPINEPHRINE 8 MG in SODIUM CHLORIDE 0.9% 242 ML IV PRN ×5 (17:32→23:30)
[2021-10-19] MEDS ORDERED: EPINEPHrine 1 MG/ML VIAL ONE (17:49)
[2021-10-19] MEDS ORDERED: DEXTROSE 10% 250 ML BAG IV PRN (18:38)
[2021-10-19 19:06] LABS: Basophils # 0.1 10*3/uL (0.0-0.2); Basophils % 0.4 % (0.0-0.8); Eosinophils % 0.2 % (0.00-10.9); Hematocrit 51.2 VOL% (42.0-52.0); Immature Granulocytes % 4.3 %; Immature Granulocytes Absolute 0.95 #; Lymphocytes % 4.6 % (21.2-54.2); Mean Corpuscular HGB Conc 31.3 GM/DL (32-36); Mean Corpuscular Volume 103.2 FL (87-102); Mean Platelet Volume 9.1 FL (9.6-12.0); Monocytes # 1.1 10*3/uL (0.11-0.8); Monocytes % 4.7 % (1.7-12.7); Neutrophils % 85.8 % (38.7-73.9); Platelet Count 242 T/CUMM (130-400); Red Blood Count 4.96 MC/CUMM (3.8-5.5); White Blood Count 22.2 T/CUMM (4-12)
[2021-10-19 19:27] LABS: Band Neutrophils 13 % (0-10); Lymphocytes 4 % (20-55); Platelet Estimate Adequate; Total Cells Counted 100
[2021-10-19 19:28] LABS: Macrocytosis 1+
[2021-10-19 19:53] LABS: Alanine Aminotransferase 1204 U/L (16-61); Albumin 2.2 G/DL (3.4-5.0); Alkaline Phosphatase 235 U/L (45-117); Aspartate Amino Transferase 1367 U/L (0-37); Blood Urea Nitrogen 28 MG/DL (7-18); Calcium 8.8 MG/DL (8.5-10.1); Carbon Dioxide 30 MMOL/L (21-32); Chloride 101 MMOL/L (98-107); Glucose 305 MG/DL (74-106); Osmolality,Calculated 295.4 MOS/KG (273-304); Potassium 5.5 MMOL/L (3.5-5.1); Sodium 140 MMOL/L (136-145); Total Protein 6.3 G/DL (6.4-8.2)
[2021-10-19] MEDS: ENOXAPARIN 40 MG/0.4 ML SYRINGE SUBCUT SCH (21:08)
[2021-10-19] MEDS ORDERED: SODIUM POLYSTYRENE SULFATE 15 GM/60 ML BOTTLE PO ONE (21:16)
[2021-10-19] MEDS ORDERED: INSULIN REGULAR 10 UNIT, CALCIUM GLUCONATE 1,000 MG in DEXTROSE 10% 250 ML IV ONE (21:17)
[2021-10-19] MEDS ORDERED: SODIUM BICARBONATE 50 MEQ/50 ML VIAL IV ONE (21:17)
[2021-10-19] MEDS: FOLIC ACID 1 MG TABLET PO SCH (22:39)
[2021-10-19] MEDS: ACETAMINOPHEN 325 MG TABLET PO PRN (22:39)
[2021-10-19] MEDS: INSULIN LISPRO 100 UNIT/ML SUBCUT SCH (23:55)
[2021-10-20] MEDS: NOREPINEPHRINE 8 MG in SODIUM CHLORIDE 0.9% 242 ML IV PRN ×2 (00:40→02:05)
[2021-10-20] MEDS: ALBUTEROL/IPRATROPIUM 3 ML NEB RESP TX SCH ×3 (00:44→07:35)
[2021-10-20] MEDS: PHENYLEPHRINE DRIP 40 MG/250 ML PREMIX IV PRN ×2 (01:15→04:15)
[2021-10-20] MEDS: fentaNYL INJ 1,250 MCG in SODIUM CHLORIDE 0.9% 225 ML IV PRN ×3 (01:55→20:04)
[2021-10-20] MEDS: MEROPENEM 500 MG in SODIUM CHLORIDE 0.9% 100 ML IV SCH ×3 (03:46→19:05)
[2021-10-20] MEDS: NOREPINEPHRINE 16 MG in SODIUM CHLORIDE 0.9% 234 ML IV PRN ×8 (03:48→23:49)
[2021-10-20] MEDS ORDERED: SODIUM CHLORIDE 0.9% 500 ML IV ONE (03:57)
[2021-10-20 04:10] LABS: Basophils # 0.1 10*3/uL (0.0-0.2); Basophils % 0.6 % (0.0-0.8); Hemoglobin 16.7 GM/DL (14.0-18.0); Immature Granulocytes % 4.6 %; Immature Granulocytes Absolute 1.04 #; Lymphocytes # 0.4 10*3/uL (1.4-4.0); Lymphocytes % 1.7 % (21.2-54.2); Mean Corpuscular HGB Conc 30.6 GM/DL (32-36); Mean Corpuscular Volume 104.6 FL (87-102); Mean Platelet Volume 9.9 FL (9.6-12.0); Monocytes # 1.4 10*3/uL (0.11-0.8); Monocytes % 6.1 % (1.7-12.7); Platelet Count 169 T/CUMM (130-400); Red Blood Count 5.22 MC/CUMM (3.8-5.5); Red Cell Distribution Width 14.2 % (9.3-17.3); White Blood Count 22.8 T/CUMM (4-12)
[2021-10-20 04:12] LABS: Hematocrit 54.6 VOL% (42.0-52.0)
[2021-10-20 04:17] LABS: Band Neutrophils 1 % (0-10); Lymphocytes 1 % (20-55); Platelet Estimate Adequate; Total Cells Counted 100
[2021-10-20 04:19] LABS: ABG Base Excess -6.6 MMOL/L (-2.5-2.5); ABG Oxygen Saturation 90.1 % (95-100); ABG PO2 73.7 MM HG (80-95); ABG TCO2 27.8 MMOL/L (23-27)
[2021-10-20 04:23] LABS: ABG PH 7.048 (7.35-7.45)
[2021-10-20 04:25] LABS: Albumin 2.1 G/DL (3.4-5.0); Bilirubin,Total 4.3 MG/DL (0.20-1.00); Calcium 7.6 MG/DL (8.5-10.1); Osmolality,Calculated 297.3 MOS/KG (273-304); Total Protein 5.8 G/DL (6.4-8.2)
[2021-10-20] MEDS ORDERED: SODIUM BICARBONATE 50 MEQ/50 ML VIAL IV ONE ×5 (04:27→18:37)
[2021-10-20] MEDS ORDERED: INSULIN REGULAR 10 UNIT, CALCIUM GLUCONATE 1,000 MG in DEXTROSE 10% 250 ML IV ONE (04:29)
[2021-10-20] MEDS ORDERED: SODIUM POLYSTYRENE SULFATE 15 GM/60 ML BOTTLE PO ONE (04:29)
[2021-10-20] MEDS ORDERED: VASOPRESSIN 100 UNITS in SODIUM CHLORIDE 0.9% 95 ML IV PRN (04:59)
[2021-10-20] MEDS: methylPREDNISolone SOD SUC 40 MG/1 ML VIAL IV SCH ×3 (05:30→21:22)
[2021-10-20] MEDS: SODIUM BICARB INJ 150 MEQ in STERILE WATER INJ 850 ML IV SCH ×3 (05:31→17:36)
[2021-10-20] MEDS: INSULIN LISPRO 100 UNIT/ML SUBCUT SCH ×3 (05:40→17:37)
[2021-10-20] MEDS: PHENYLEPHRINE INJ 160 MG in SODIUM CHLORIDE 0.9% 234 ML IV PRN ×3 (06:05→19:50)
[2021-10-20] MEDS ORDERED: MIDAZOLAM 2 MG/2 ML VIAL IV ONE (07:10)
[2021-10-20] MEDS ORDERED: CISATRACURIUM 200 MG in SODIUM CHLORIDE 0.9% 180 ML IV PRN (07:26)
[2021-10-20] MEDS ORDERED: LEVALBUTEROL 1.25 MG/3 ML NEB RESP TX ONE (07:26)
[2021-10-20 07:31] LABS: ABG Base Excess -1.3 MMOL/L (-2.5-2.5); ABG HCO3 23.2 MMOL/L (20-26); ABG Oxygen Saturation 91.2 % (95-100); ABG PO2 68.3 MM HG (80-95); ABG TCO2 27.9 MMOL/L (23-27); Glucose Heart Surgery 161 MG/DL (74-106); Hematocrit Heart Surgery 51.1 PERCENT (42-52); Hemoglobin Heart Surgery 16.7 G/DL (14.0-18.0)
[2021-10-20 07:34] LABS: ABG PCO2 85.8 MM HG (35-48); ABG PH 7.179 (7.35-7.45); Potassium Heart/CVR 6.1 MMOL/L (3.5-5.1)
[2021-10-20] MEDS: MIDAZOLAM 100 MG in SODIUM CHLORIDE 0.9% 80 ML IV PRN (07:43)
[2021-10-20] MEDS: DORNASE ALFA 2.5 MG/2.5 ML VIAL RESP TX SCH ×2 (07:49→20:15)
[2021-10-20 09:20] LABS: Amorphous Crystals,Urine Moderate /HPF (Few); Mucus,Urine Occasional /LPF (Occasional); Urine Appearance Slightly Cloudy (Clear); Urine Color Amber (Yellow)
[2021-10-20 09:21] LABS: Bilirubin,Urine Moderate mg/dL (Negative); Blood, Urine Trace mg/dL (Negative); Glucose,Urine (UA) 100 mg/dL (Negative); Ketones,Urine Negative (Negative); Nitrite,Urine Negative (Negative); Protein,Urine 100 mg/dL (Negative); Urine Specific Gravity > 1.030 (1.001-1.035); Urine Urobilinogen > 8.0 eU/dL (<2.0)
[2021-10-20] MEDS: FAMOTIDINE 20 MG/2 ML VIAL IV SCH (09:43)
[2021-10-20] MEDS: valACYclovir 500 MG TABLET PO SCH ×2 (09:44→21:21)
[2021-10-20] MEDS: ESCITALOPRAM 10 MG TABLET PO SCH (09:44)
[2021-10-20] MEDS: CLORAZEPATE 3.75 MG TABLET PO SCH (09:44)
[2021-10-20] MEDS: MONTELUKAST 10 MG TABLET PO SCH ×2 (09:44→21:22)
[2021-10-20 10:25] LABS: ABG Base Excess -1.7 MMOL/L (-2.5-2.5); ABG HCO3 22.9 MMOL/L (20-26); ABG Oxygen Saturation 92.7 % (95-100); ABG PO2 77.3 MM HG (80-95); Glucose Heart Surgery 124 MG/DL (74-106); Hematocrit Heart Surgery 51.8 PERCENT (42-52); Hemoglobin Heart Surgery 16.9 G/DL (14.0-18.0)
[2021-10-20 10:26] LABS: ABG PH 7.167 (7.35-7.45)
[2021-10-20 10:27] LABS: ABG PCO2 88.5 MM HG (35-48); Potassium Heart/CVR 6.2 MMOL/L (3.5-5.1)
[2021-10-20] MEDS: LEVALBUTEROL 1.25 MG/3 ML NEB RESP TX SCH ×4 (11:08→23:49)
[2021-10-20] MEDS: ceFAZolin 2,000 MG/50 ML DUPLEX IV SCH (12:02)
[2021-10-20 12:57] LABS: Osmolality,Calculated 303.6 MOS/KG (273-304); Potassium 5.1 MMOL/L (3.5-5.1)
[2021-10-20] MEDS ORDERED: CALCIUM GLUCONATE RIDER 1,000 MG/50 ML PREMIX IV ONE ×2 (13:06→18:37)
[2021-10-20] MEDS: ACETAMINOPHEN 325 MG TABLET PO PRN (13:18)
[2021-10-20] MEDS ORDERED: ALBUMIN 25% 25 GM/100 ML VIAL IV ONE (17:47)
[2021-10-20 17:58] LABS: ABG Base Excess -5.3 MMOL/L (-2.5-2.5); ABG HCO3 19.9 MMOL/L (20-26); ABG Oxygen Saturation 88.1 % (95-100); ABG PO2 67.1 MM HG (80-95); ABG TCO2 25.3 MMOL/L (23-27); Glucose Heart Surgery 122 MG/DL (74-106); Hematocrit Heart Surgery 51.9 PERCENT (42-52)
[2021-10-20 18:02] LABS: ABG PCO2 86.4 MM HG (35-48); ABG PH 7.129 (7.35-7.45); Potassium Heart/CVR 6.6 MMOL/L (3.5-5.1)
[2021-10-20] MEDS ORDERED: SODIUM ZIRCONIUM CYCLOSILICATE 10 GM PACK PO SCH (19:00)
[2021-10-20] MEDS ORDERED: ENOXAPARIN 30 MG/0.3 ML SYRINGE SUBCUT SCH (21:00)
[2021-10-20] MEDS: SODIUM ZIRCONIUM CYCLOSILICATE 10 GM PACK PO SCH (21:22)
[2021-10-20] MEDS: guaiFENesin/CODEINE 5 ML LIQUID PO PRN (21:22)
[2021-10-20] MEDS: FOLIC ACID 1 MG TABLET PO SCH (21:22)
[2021-10-21] LABS: ABG Base Excess -8.2 MMOL/L (-2.5-2.5); ABG HCO3 17.8 MMOL/L (20-26); ABG Oxygen Saturation 86.7 % (95-100); ABG PH 7.139 (7.35-7.45); ABG PO2 66.3 MM HG (80-95); ABG TCO2 21.1 MMOL/L (23-27)
[2021-10-21 00:01] LABS: ABG PCO2 69.9 MM HG (35-48)
[2021-10-21] MEDS: ceFAZolin 2,000 MG/50 ML DUPLEX IV SCH ×2 (00:20→12:00)
[2021-10-21] MEDS ORDERED: SODIUM BICARBONATE 50 MEQ/50 ML VIAL IV ONE ×2 (00:29→02:52)
[2021-10-21 00:36] LABS: Calcium 6.3 MG/DL (8.5-10.1)
[2021-10-21 00:40] LABS: Potassium 6.5 MMOL/L (3.5-5.1)
[2021-10-21] MEDS ORDERED: INSULIN REGULAR 10 UNIT, CALCIUM GLUCONATE 1,000 MG in DEXTROSE 10% 250 ML IV ONE (00:42)
[2021-10-21] MEDS: INSULIN LISPRO 100 UNIT/ML SUBCUT SCH ×3 (00:49→12:00)
[2021-10-21] MEDS: PHENYLEPHRINE INJ 160 MG in SODIUM CHLORIDE 0.9% 234 ML IV PRN ×3 (00:50→11:00)
[2021-10-21] MEDS: MEROPENEM 500 MG in SODIUM CHLORIDE 0.9% 100 ML IV SCH ×2 (03:30→11:59)
[2021-10-21 03:51] LABS: ABG Base Excess -5.3 MMOL/L (-2.5-2.5); ABG HCO3 19.8 MMOL/L (20-26); ABG Oxygen Saturation 81.4 % (95-100); ABG PO2 57.5 MM HG (80-95); ABG TCO2 24.1 MMOL/L (23-27)
[2021-10-21 03:53] LABS: ABG PCO2 76.9 MM HG (35-48); ABG PH 7.152 (7.35-7.45)
[2021-10-21 03:55] LABS: Basophils # 0.1 10*3/uL (0.0-0.2); Basophils % 0.4 % (0.0-0.8); Hematocrit 48.4 VOL% (42.0-52.0); Hemoglobin 14.9 GM/DL (14.0-18.0); Immature Granulocytes % 3.9 %; Immature Granulocytes Absolute 0.98 #; Lymphocytes # 0.8 10*3/uL (1.4-4.0); Lymphocytes % 3.4 % (21.2-54.2); Mean Corpuscular HGB Conc 30.8 GM/DL (32-36); Mean Corpuscular Volume 104.8 FL (87-102); Mean Platelet Volume 12.7 FL (9.6-12.0); Monocytes # 2.1 10*3/uL (0.11-0.8); Monocytes % 8.5 % (1.7-12.7); Neutrophils % 83.8 % (38.7-73.9); Platelet Count 96 T/CUMM (130-400); Red Blood Count 4.62 MC/CUMM (3.8-5.5); Red Cell Distribution Width 14.6 % (9.3-17.3); White Blood Count 24.8 T/CUMM (4-12)
[2021-10-21] MEDS: fentaNYL INJ 1,250 MCG in SODIUM CHLORIDE 0.9% 225 ML IV PRN (04:05)
[2021-10-21 04:13] LABS: Lymphocytes 4 % (20-55); Platelet Estimate Decreased; Total Cells Counted 100
[2021-10-21 04:18] LABS: Uric Acid 11.5 MG/DL (3.5-7.2)
[2021-10-21 04:24] LABS: Bilirubin,Total 2.5 MG/DL (0.20-1.00); Calcium 6.2 MG/DL (8.5-10.1); Osmolality,Calculated 321.6 MOS/KG (273-304); Potassium 5.6 MMOL/L (3.5-5.1); Total Protein 4.7 G/DL (6.4-8.2)
[2021-10-21] MEDS: LEVALBUTEROL 1.25 MG/3 ML NEB RESP TX SCH ×4 (04:52→15:31)
[2021-10-21] MEDS: MINERAL OIL/PETROLATUM OPH OINT 3.5 GM TUBE BOTH EYES SCH ×3 (05:02→14:51)
[2021-10-21] MEDS: NOREPINEPHRINE 16 MG in SODIUM CHLORIDE 0.9% 234 ML IV PRN ×3 (05:02→10:21)
[2021-10-21] MEDS: methylPREDNISolone SOD SUC 40 MG/1 ML VIAL IV SCH ×2 (05:22→14:53)
[2021-10-21] MEDS: SODIUM ZIRCONIUM CYCLOSILICATE 10 GM PACK PO SCH ×2 (05:22→14:52)
[2021-10-21] MEDS: DORNASE ALFA 2.5 MG/2.5 ML VIAL RESP TX SCH (07:10)
[2021-10-21] MEDS: MIDAZOLAM 100 MG in SODIUM CHLORIDE 0.9% 80 ML IV PRN (08:06)
[2021-10-21] MEDS: ESCITALOPRAM 10 MG TABLET PO SCH (10:19)
[2021-10-21] MEDS: valACYclovir 500 MG TABLET PO SCH (10:20)
[2021-10-21] MEDS: MONTELUKAST 10 MG TABLET PO SCH (10:20)
[2021-10-21] MEDS: FAMOTIDINE 20 MG/2 ML VIAL IV SCH (11:20)
[2021-10-21] MEDS: SODIUM BICARB INJ 150 MEQ in STERILE WATER INJ 850 ML IV SCH (14:52)
== END 2021-10-21 11:50 | disposition expired | DRG 208 ==
LOC: N.ED 10:01 → SUATTDRO 14:20 → N.EDINP 14:20 → N.5E 15:05 → N.CC 10-13 09:38
PROVIDERS: ADMIT Internal Medicine Geriatric Medicine; ATTEND Family Medicine